=== PATIENT | female | born 1980 | race African-American/Black ===

== ENCOUNTER 2017-03-23 16:51 | Emergency (ER) | payer OTHER ==
[2017-03-23 16:56] VITALS: BP 134/81; PULSE 88; TEMP 98.2; BMI 39.9
[2017-03-23] MEDS ORDERED: SODIUM CHLORIDE 1,000 ML IV STA (17:45)
[2017-03-23 18:16] LABS: BASOPHIL 0.7 % (0-2.0); MEAN CELL VOLUME 90.8 fl (80-96)
[2017-03-23 18:18] LABS: EOSINOPHIL 3.9 % (0-4.5); MCH 30.3 pg (25.7-33.7); MCHC 33.4 g/dl (32.0-36.0); MEAN PLT VOLUME 7.4 fl (7.5-11.1); NEUTROPHILS 62.9 % (42.8-82.8); PLATELET COUNT 398 K/MM3 (134-434); RDW 15.1 % (11.6-15.6)
[2017-03-23 18:23] LABS: URINE APPEARANCE CLEAR; URINE BILIRUBIN NEGATIVE (NEGATIVE); URINE BLOOD NEGATIVE (NEGATIVE); URINE COLOR LTYELLOW; URINE GLUCOSE (UA) NEGATIVE (NEGATIVE); URINE KETONE NEGATIVE (NEGATIVE); URINE NITRITE NEGATIVE (NEGATIVE); URINE PROTEIN NEGATIVE (NEGATIVE); URINE UROBILINOGEN NEGATIVE mg/dL (0.2-1.0)
[2017-03-23] MEDS ORDERED: ACETAMINOPHEN 1000 MG/100 ML VIAL (NON FORMULARY) IVPB ONE (18:47)
[2017-03-23] MEDS ORDERED: ACETAMINOPHEN INJECTION 100 ML IVPB ONE (18:55)
[2017-03-23 19:54] LABS: ALBUMIN 3.7 g/dl (3.4-5.0); ALK PHOS 70 U/L (45-117); ANION GAP 9 (8-16); BILIRUBIN,TOTAL 0.3 mg/dL (0.2-1.0); CALCIUM 8.7 mg/dL (8.5-10.1); CO2 24 mmol/L (21-32); CREATININE 0.8 mg/dL (0.55-1.02); GLUCOSE,RANDOM 81 mg/dL (74-106); SGPT/ALT 22 U/L (12-78); TOT PROT 7.9 g/dl (6.4-8.2)
[2017-03-23 19:56] LABS: SGOT/AST 16 U/L (15-37)
--- NOTE | 2017-03-23 20:17 | PDOC ---
Attending Attestation - Resident Resident Name: Go Paez - ED Attending Attestation I have performed the following: I have examined & evaluated the patient, The case was reviewed & discussed with the resident, I agree w/resident's findings & plan, Exceptions are as noted - HPI HPI: 03/23/17 20:15 36 F with no PMH presents to ER with vaginal bleeding and lower back pain. Pt states that it started up 2 days ago with spotting. She then developed lower back cramps. Pt states it feels like menstrual cramps. She does not know when her LMP was, as she was on control until last month. Pt denies any N/V. Denies diarrhea/constipation. - Physicial Exam PE: 03/23/17 20:22 "GENERAL: Awake, alert, and fully oriented, in no acute distress HEAD: No signs of trauma EYES: PERRLA, EOMI, sclera anicteric, conjunctiva clear ENT: Auricles normal inspection, hearing grossly normal, nares patent, oropharynx clear without exudates. Moist mucosa NECK: Nontender, no stepoffs, Normal ROM, supple, no lymphadenopathy, JVD, or masses LUNGS: Breath sounds equal, clear to auscultation bilaterally. No wheezes, and no crackles HEART: Regular rate and rhythm, normal S1 and S2, no murmurs, rubs or gallops ABDOMEN: Soft, nontender, normoactive bowel sounds. No guarding, no rebound. No masses BACK: nontender, no stepoffs, no CVAT : Scant blood in vault, no CMT, no adnexal masses/tenderness, os closed EXTREMITIES: Normal range of motion, no edema. No clubbing or cyanosis. No cords, erythema, or tenderness NEUROLOGICAL: Cranial nerves II through XII intact. 5/5 strength and sensation in all extremities, Normal speech, normal gait SKIN: Warm, Dry, normal turgor, no rashes or lesions noted. " - Medical Decision Making 03/23/17 20:23 36 F with vaginal bleeding and back cramps x 2 days. UPT positive in ER. LMP unknown. Concerning for ectopic vs spontaneous ab. - Labs, T&S - UA - TVUS 03/23/17 TVUS equivocal for IUP. Pt re-examined. No abdominal tenderness. Vitals normal. Pt well appearing with only minimal vaginal spotting at this time. Pt instructed to f/u with apn for repeat US and blood tests. She has been explicitly told that we cannot rule out an ectopic based on today's ultrasound. Pt understands that this may be a potentially life- threatening condition. [facility] Pt clinically stable for DC at this time.
[2017-03-23 21:48] LABS: URINE LEUK ESTERASE Negative (NEGATIVE)
--- NOTE | 2017-03-23 22:46 | PDOC ---
*Physical Exam - Vital Signs Last Vital Signs Temp Pulse Resp BP Pulse Ox 98.2 F 88 18 134/81 100 03/23/17 16:53 03/23/17 16:53 03/23/17 16:53 03/23/17 16:53 03/23/17 16:53 - Physical Exam General Appearance: Yes: Nourished, Obese Neck: positive: Trachea midline, Supple Respiratory/Chest: positive: Lungs Clear, Normal Breath Sounds Cardiovascular: positive: Regular Rhythm, Regular Rate, S1, S2 Integumentary: positive: Normal Color, Dry, Warm Neurologic: positive: Fully Oriented, Alert ED Treatment Course - LABORATORY CBC & Chemistry Diagram: 03/23/17 17:57 03/23/17 18:55 - ADDITIONAL ORDERS Additional order review: Laboratory Results 03/23/17 03/23/17 03/23/17 20:38 19:00 18:55 Sodium 140 Potassium 4.2 Chloride 107 Carbon Dioxide 24 Anion Gap 9 BUN 7 Creatinine 0.8 Creat Clearance w eGFR > 60 Random Glucose 81 Calcium 8.7 Total Bilirubin 0.3 D AST 16 ALT 22 Alkaline Phosphatase 70 Total Protein 7.9 Albumin 3.7 Lipase Beta HCG, Quant 2817.9 Urine Color Urine Appearance Urine pH Ur Specific [place] Urine Protein Urine Glucose (UA) Urine Ketones Urine Blood Urine Nitrite Urine Bilirubin Urine Urobilinogen Ur Leukocyte Esterase Urine HCG, Qual Blood Type O POSITIVE Antibody Screen Negative 03/23/17 03/23/17 03/23/17 18:55 17:57 17:57 Sodium Cancelled Potassium Cancelled Chloride Cancelled Carbon Dioxide Cancelled Anion Gap Cancelled BUN Cancelled Creatinine Cancelled Creat Clearance w eGFR Cancelled Random Glucose Cancelled Calcium Cancelled Total Bilirubin Cancelled AST Cancelled ALT Cancelled Alkaline Phosphatase Cancelled Total Protein Cancelled Albumin Cancelled Lipase 126 Beta HCG, Quant Urine Color Ltyellow Urine Appearance Clear Urine pH 6.0 Ur Specific [place] 1.015 Urine Protein Negative Urine Glucose (UA) Negative Urine Ketones Negative Urine Blood Negative Urine Nitrite Negative Urine Bilirubin Negative Urine Urobilinogen Negative Ur Leukocyte Esterase Negative Urine HCG, Qual Positive Blood Type Antibody Screen 03/23/17 17:57 RBC 4.70 MCV 90.8 MCHC 33.4 RDW 15.1 MPV 7.4 L Neutrophils % 62.9 D Lymphocytes % 26.3 D Monocytes % 6.2 Eosinophils % 3.9 Basophils % 0.7 - Medications Given in the ED: ED Medications Discontinued Medications Generic Name Dose Route Start Last Admin Trade Name Randy PRN Reason Stop Dose Admin Acetaminophen 1,000 mg 03/23/17 18:47 03/23/17 18:53 Ofirmev Injection - IVPB 03/23/17 18:48 1,000 mg ONCE ONE Administration Sodium Chloride 1,000 mls @ 1,000 mls/hr 03/23/17 17:45 03/23/17 17:55 Normal Saline - IV 03/23/17 18:44 1,000 mls/hr ASDIR STA Administration Medical Decision Making - Medical Decision Making 03/24/17 20:56 Patient signed out by Dr. Paez (IM Resident) Patient's vaginal spotting resolved during course of admission. TVUS shows possible IUP, however not definitive due to gestational age. Patient given instructions for f/u TVUS. Patient has previously scheduled appointment at [facility] on 03/26. Patient given return precautions and discharged home. *DC/Admit/Observation/Transfer Diagnosis at time of Disposition: - Discharge Dispostion Disposition: HOME Condition at time of disposition: Good Admit: No - Patient Instructions Additional Instructions: Please follow up with your scheduled flaker tender appointment at [facility] on Sunday March 26, 2017. Please return to the Emergency Department should you experience any worsening or concerning symptoms.
== END 2017-03-23 22:53 | disposition home or self-care (01) ==
LOC: JER 16:51
PROC: 3E0337Z Introduction of Electrolytic and Water Balance Substance into Peripheral Vein, Percutaneous Approach (ICD-10-PCS; principal; 2017-03-23)
PROC: 3E033NZ Introduction of Analgesics, Hypnotics, Sedatives into Peripheral Vein, Percutaneous Approach (ICD-10-PCS; 2017-03-23)
DX: O26.891 Other specified pregnancy related conditions, first trimester (principal); Z3A.01 Less than 8 weeks gestation of pregnancy
CPT/HCPCS: 36415; 76817-TC; 80053; 81003; 83690; 84702; 84703; 85025; 86850; 86900; 86901; 87086; 99284-25

== ENCOUNTER 2021-09-27 16:35 | Emergency (ER) | payer OTHER ==
[2021-09-27 16:51] VITALS: BP 140/93; PULSE 77; TEMP 98; BMI 33.3
[2021-09-27] MEDS ORDERED: KETOROLAC TROMETHAMINE 30 MG/1 ML VIAL IM ONE (17:58)
[2021-09-27] MEDS ORDERED: KETOROLAC TROMETHAMINE 30 MG/1 ML VIAL ONE (18:10)
== END 2021-09-27 19:35 | disposition home or self-care (01) ==
LOC: JERFT 16:35
PROC: 3E0233Z Introduction of Anti-inflammatory into Muscle, Percutaneous Approach (ICD-10-PCS; principal; 2021-09-27)
DX: N75.1 Abscess of Bartholin's gland (principal)
CPT/HCPCS: 36415; 87070; 87186; 87205; 87491; 87591; 99284-25

== ENCOUNTER 2021-10-02 16:45 | Emergency (ER) | payer OTHER ==
[2021-10-02 16:52] VITALS: BP 130/85; PULSE 69; TEMP 99.3; BMI 36.1
== END 2021-10-02 17:43 | disposition home or self-care (01) ==
LOC: JERFT 16:45
DX: N75.1 Abscess of Bartholin's gland (principal); Z48.01 Encounter for change or removal of surgical wound dressing
CPT/HCPCS: 99281-25

== ENCOUNTER 2022-09-27 20:16 | Emergency (ER) | payer OTHER ==
[2022-09-27 20:33] VITALS: BP 155/79; PULSE 75; RESP 20; TEMP 98; BMI 35.1
[2022-09-27] MEDS ORDERED: ONDANSETRON 4 MG TABLET PO ONE (21:00)
[2022-09-27] MEDS ORDERED: ACETAMINOPHEN 500 MG TABLET (FP) PO ONE (21:00)
[2022-09-27] MEDS ORDERED: ONDANSETRON *ODT* 4 MG TABLET ONE (21:03)
[2022-09-27] MEDS ORDERED: ACETAMINOPHEN 500 MG TABLET (FP) ONE (21:03)
[2022-09-27 21:08] LABS: EOS % 4.7 % (0-4.5); HEMATOCRIT 39.1 % (32.4-45.2); HEMOGLOBIN 13.1 GM/dL (10.7-15.3); LYMPH % 24.7 % (8-40); MCHC 33.6 g/dl (32.0-36.0); MEAN CELL VOLUME 86.3 fl (80-96); MEAN PLT VOLUME 6.9 fl (7.5-11.1); MONO % 5.8 % (3.8-10.2); NEUT % 63.8 % (42.8-82.8); PLATELET COUNT 453 10^3/uL (134-434); RBC 4.53 M/mm3 (3.60-5.2); RDW 16.2 % (11.6-15.6); WHITE BLOOD COUNT 6.3 K/mm3 (4.0-10.0)
[2022-09-27 21:10] LABS: EPI CELLS 11 /uL (0-25.1); HYALINE CASTS 0 /uL (0-3.1); URINE APPEARANCE CLEAR; URINE BACTERIA 33 /uL (0-1359); URINE BILIRUBIN NEGATIVE (NEGATIVE); URINE COLOR YELLOW; URINE GLUCOSE (UA) NEGATIVE (NEGATIVE); URINE KETONE NEGATIVE (NEGATIVE); URINE LEUK ESTERASE TRACE (NEGATIVE); URINE NITRITE NEGATIVE (NEGATIVE); URINE PROTEIN NEGATIVE (NEGATIVE); URINE RBC 11 /uL (0-23.9); URINE UROBILINOGEN 0.2 mg/dL (0.2-1.0); URINE WBC 7 /uL (0-25.8)
[2022-09-27 21:46] LABS: CREATININE 0.9 mg/dL (0.55-1.3)
[2022-09-27] MEDS ORDERED: KETOROLAC TROMETHAMINE 30 MG/1 ML VIAL IM ONE (22:45)
[2022-09-27] MEDS ORDERED: KETOROLAC TROMETHAMINE 30 MG/1 ML VIAL ONE (22:46)
== END 2022-09-27 22:49 | disposition home or self-care (01) ==
LOC: JER 20:16 → JERFT 20:16
PROC: 3E0233Z Introduction of Anti-inflammatory into Muscle, Percutaneous Approach (ICD-10-PCS; principal; 2022-09-27)
DX: N93.9 Abnormal uterine and vaginal bleeding, unspecified (principal)
CPT/HCPCS: 36415; 76830-TC; 80048; 81003; 84703; 85025; 86850; 86900; 86901; 87070; 87086; 87186; 87205; 87491; 87591; 99284-25

== ENCOUNTER 2023-03-28 08:53 | Emergency (ER) | payer OTHER ==
[2023-03-28 09:18] VITALS: BP 139/95; PULSE 73; RESP 17; TEMP 97.8; BMI 32.5
[2023-03-28] MEDS ORDERED: KETOROLAC TROMETHAMINE 30 MG/1 ML VIAL IVPUSH ONE (10:04)
[2023-03-28] MEDS ORDERED: ACETAMINOPHEN 500 MG TABLET (FP) PO ONE (10:04)
[2023-03-28] MEDS ORDERED: KETOROLAC TROMETHAMINE 30 MG/1 ML VIAL ONE (10:08)
[2023-03-28] MEDS ORDERED: ACETAMINOPHEN 500 MG TABLET (FP) ONE (10:08)
[2023-03-28 11:23] LABS: BASO % 1.1 % (0-2.0); EOS % 6.3 % (0-4.5); HEMATOCRIT 39.1 % (32.4-45.2); HEMOGLOBIN 13.4 GM/dL (10.7-15.3); LYMPH % 29.8 % (8-40); MCH 30.8 pg (25.7-33.7); MCHC 34.3 g/dl (32.0-36.0); MEAN CELL VOLUME 89.6 fl (80-96); MEAN PLT VOLUME 7.2 fl (7.5-11.1); MONO % 6.1 % (3.8-10.2); NEUT % 56.7 % (42.8-82.8); PLATELET COUNT 531 10^3/uL (134-434); RBC 4.37 M/mm3 (3.60-5.2); RDW 14.9 % (11.6-15.6); WHITE BLOOD COUNT 5.3 K/mm3 (4.0-10.0)
[2023-03-28 11:36] LABS: CHLORIDE 106 mmol/L (98-107); SODIUM 139 mmol/L (136-145)
[2023-03-28 11:43] LABS: BLOOD UREA NITROGEN 6.1 mg/dL (7-18); CALCIUM 8.9 mg/dL (8.5-10.1)
[2023-03-28 11:44] LABS: ALBUMIN 3.6 g/dl (3.4-5.0); ANION GAP 5 mmol/L (4-13); CO2 28 mmol/L (21-32); GLUCOSE,RANDOM 83 mg/dL (74-106)
[2023-03-28 11:47] LABS: CREATININE 0.8 mg/dL (0.55-1.3); SGOT/AST 16 U/L (15-37)
[2023-03-28 11:48] LABS: SGPT/ALT 20 U/L (13-61)
[2023-03-28 11:49] LABS: ALK PHOS 58 U/L (45-117); BILIRUBIN,TOTAL 0.4 mg/dL (0.2-1); TOT PROT 7.5 g/dl (6.4-8.2)
[2023-03-28 12:13] LABS: ERYTHROCYTE SEDIMENTATION RATE 7 mm/hr (0-20)
== END 2023-03-28 13:26 | disposition home or self-care (01) ==
LOC: JERFT 08:53
PROC: 3E0333Z Introduction of Anti-inflammatory into Peripheral Vein, Percutaneous Approach (ICD-10-PCS; principal; 2023-03-28)
DX: M25.562 Pain in left knee (principal); R22.42 Localized swelling, mass and lump, left lower limb; M25.462 Effusion, left knee; M25.762 Osteophyte, left knee
CPT/HCPCS: 36415; 73562-TC-LT-FY; 80053; 85025; 85651; 86140; 99284-25